=== PATIENT | male | born 1960 | race Caucasian/White ===

== ENCOUNTER 2018-03-22 23:41 | Emergency (ER) | payer MEDICAID ==
[~2018-03-22] VITALS: Ht 193 cm; Wt 113.4 kg
[2018-03-22] MEDS ORDERED: LIBRAX CAPSULE1 EACH PO (23:50)
[2018-03-22] MEDS ORDERED: IBUPROFEN400 MG PO (23:51)
[2018-03-22] MEDS ORDERED: VISTARIL50 MG PO (23:52)
== END 2018-03-23 01:00 | disposition home or self-care (01) ==
LOC: ED 23:41
DX: R03.0 Elevated blood-pressure reading, without diagnosis of hypertension (principal); F10.239 Alcohol dependence with withdrawal, unspecified; F17.200 Nicotine dependence, unspecified, uncomplicated; Z79.899 Other long term (current) drug therapy
CPT/HCPCS: 99282